=== PATIENT | female | born 1990 | race African-American/Black ===

== ENCOUNTER 2017-02-03 10:52 | Emergency (ER) | payer OTHER ==
[~2017-02-03] VITALS: Ht 170.2 cm; Wt 75.5 kg
[2017-02-03] MEDS ORDERED: ACETAMINOPHEN 325 MG TAB PO ONE (13:30)
--- NOTE | 2017-02-03 14:56 | REP ---
Clinical: Known with recent trauma and pelvic pain/cramping. Comparison: None . Findings: Examination demonstrates a single live intrauterine in variable presentation. motion is identified by technologist. Placenta is noted anteriorly and grade zero without evidence for placenta previa or abruption. Amniotic fluid volume is normal. Cervix measures 4.8 cm in length and appears closed. No evidence for nuchal cord. Maternal ovaries are grossly normal with right corpus luteal cyst. Gestational age by LMP 17 weeks 5 days with TONY 07/09/2017 . Gestational age by current measurements 17 weeks 5 days with TONY 07/09/2017 . FHR equals 150 beats per minute. BPD 3.9 cm 17 weeks 6 days HC 14.3 cm 70 weeks 4 days AC 12.0 cm 17 weeks 5 days FL 2.4 cm 17 weeks 2 days HL 2.6 cm 18 weeks 1 day HC/AC ratio 1.19 Estimated weight 199 grams ( 40th percentile). Anatomical assessment demonstrates normal structures including cranium, choroid plexus, cavum, cerebellum/posterior fossa, nose and lips, lungs, diaphragm, stomach, cord insertion/three-vessel cord, kidneys/bladder, spine, and extremities. Limited evaluation of the facial profile and heart/ventricular outflow tracts noted. Impression: Single live intrauterine in variable presentation demonstrating appropriate interval growth. No gross abnormalities are identified. Anatomical limitations as described above may warrant reevaluation at 20-21 weeks. Signed by Lars Baron MD 02/03/2017 02:47 P
[2017-02-03 14:57] VITALS: BP 121/65
== END 2017-02-03 15:05 | disposition home or self-care (01) ==
LOC: M ED 10:52
DX: O9A.212 Injury, poisoning and certain other consequences of external causes complicating pregnancy, second trimester (principal); S70.01XA Contusion of right hip, initial encounter; S00.93XA Contusion of unspecified part of head, initial encounter; Z3A.17 17 weeks gestation of pregnancy; W00.0XXA Fall on same level due to ice and snow, initial encounter; Y92.89 Other specified places as the place of occurrence of the external cause; Y93.01 Activity, walking, marching and hiking; Y99.9 Unspecified external cause status

== ENCOUNTER 2017-07-01 19:11 | Outpatient (CLI) | payer OTHER | END 2017-07-01 20:20 | disposition home or self-care (01) | LOC: M LDO 19:11 | DX: O36.8130 Decreased fetal movements, third trimester, not applicable or unspecified (principal); Z3A.38 38 weeks gestation of pregnancy | CPT/HCPCS: 59025 ==

== ENCOUNTER 2017-07-09 10:25 | Outpatient (CLI) | payer OTHER | END 2017-07-09 13:25 | disposition home or self-care (01) | LOC: M LDO 10:25 | DX: O47.1 False labor at or after 37 completed weeks of gestation (principal); Z3A.40 40 weeks gestation of pregnancy | CPT/HCPCS: 59025 ==

== ENCOUNTER 2017-07-10 18:15 | Inpatient (IN) | payer OTHER ==
[2017-07-10] MEDS ORDERED: OXYTOCIN 30 UNITS IN 0.9% NaCl 500ML IV BAG (J2590) As Ordered (18:24)
[2017-07-10] MEDS: OXYTOCIN DRIP 30 UNITS in APPROPRIATE DILUENT 1 EA IV (18:45)
[2017-07-10] MEDS: LR 1,000 ML IV ×2 (19:02→23:35)
[2017-07-10] MEDS ORDERED: ONDANSETRON 4MG/2ML VIAL (J2405) IV (19:15)
[2017-07-10] MEDS ORDERED: RHOGAM 300 MCG (1500 IU) INJ (J2790) IM (19:15)
[2017-07-10] MEDS ORDERED: MEASLES,MUMPS,RUBELLA VACCINE INJ (MMR-II) (90707) SC (19:15)
[2017-07-10] MEDS ORDERED: DIBUCAINE 1% OINTMENT 30GM TOP (19:15)
[2017-07-10] MEDS ORDERED: PROMETHAZINE 25 MG TAB PO (19:15)
[2017-07-10] MEDS ORDERED: IBUPROFEN 800 MG TAB PO (19:15)
[2017-07-10] MEDS ORDERED: METHYLERGONOVINE MALEATE 0.2 MG TAB PO (19:15)
[2017-07-10 19:18] LABS: HEMATOCRIT 41.8 % (36.0-47.0); HEMOGLOBIN 14.1 g/dl (12.0-15.5); MEAN CORPUSCULAR HEMOGLOBIN 28.1 pg (27.0-33.0); MEAN CORPUSCULAR HGB CONC 33.7 g/dl (32.0-36.5); MEAN CORPUSCULAR VOLUME 83.3 fl (80.0-96.0); PLATELET COUNT, AUTOMATED 195 10^3/uL (150-450); RED BLOOD COUNT 5.02 10^6/uL (4.00-5.40); RED CELL DISTRIBUTION WIDTH 14.1 % (11.5-14.5); WHITE BLOOD COUNT 10.6 10^3/uL (4.0-10.0)
[2017-07-10] MEDS: DOCUSATE SODIUM 100 MG CAP PO (23:14)
[2017-07-11] MEDS: PRENATAL VITAMINS CHEWABLE TABLET PO (09:03)
[2017-07-11] MEDS: ACETAMINOPHEN 500 MG TAB PO (09:09)
== END 2017-07-11 18:30 | disposition home or self-care (01) | DRG 775 ==
LOC: M LDO 18:15 → M LDI 18:28 → M OBS 22:02
PROVIDERS: Student in an Organized Health Care Education/Training Program
PROC: 10E0XZZ Delivery of Products of Conception, External Approach (ICD-10-PCS; principal; 2017-07-10)
PROC: 10907ZC Drainage of Amniotic Fluid, Therapeutic from Products of Conception, Via Natural or Artificial Opening (ICD-10-PCS; 2017-07-10)
DX: O62.3 Precipitate labor (principal); Z37.0 Single live birth; O48.0 Post-term pregnancy; Z3A.40 40 weeks gestation of pregnancy; O77.0 Labor and delivery complicated by meconium in amniotic fluid